=== PATIENT | female | born 1970 | race Caucasian/White ===

== ENCOUNTER 2022-08-30 12:40 | Emergency (ER) | payer OTHER, SELFPAY ==
[2022-08-30 13:04] VITALS: BP 126/84; BP 149/82; PULSE 67; PULSE 70; RESP 18; TEMP 36.3; O2SAT 100; BMI 33.5
[2022-08-30 13:30] LABS: Appearance Urine Clear; Color Urine Yellow; Glucose Urine UA Negative (Negative); Leukocyte Esterase Urine Negative (Negative); Nitrite Urine Negative (Negative); Specific Gravity - Urine 1.015 (1.005-1.025); Urine Blood Negative (Negative); Urine Ketones Negative (Negative); Urine Protein Negative (Neg-Trace)
[2022-08-30] MEDS: Acetaminophen 325 MG TABLET 975 MG PO (13:41)
[2022-08-30] MEDS: Ketorolac Tromethamine 30 MG/ML VIAL IM (13:42)
--- NOTE | 2022-08-30 13:47 | PC.NURSE ---
pt medicated per MAR
--- NOTE | 2022-08-30 14:19 | ED_ITS ---
HPI - Back Pain/Injury General Chief Complaint: Back Pain/Injury Stated Complaint: LOW BACK PAIN S/P REACH,FELT POP PER EMS Time Seen by Provider: 08/30/22 12:43 History of Present Illness HPI Narrative: Patient complains of right-sided low back pain which began at work when she lifted an item out of a tub and felt severe back pain and spasm and was not able to straighten up and ambulance was caused and she was brought to the hospital She denies any weakness of any muscles she denies any numbness or loss of sensation, she does have tingling going down into her right gluteal area but not all the way to the toes, she has no changes to bowel or bladder no incontinence no dysuria No IV drugs no for Related Data Previous Rx's Medication Instructions Recorded acetaminophen 500 mg tablet 1,000 mg PO TID PRN pain #30 tabs 08/30/22 cyclobenzaprine 5 mg tablet 5 mg PO TID PRN muscle spasm #10 08/30/22 tabs ibuprofen 600 mg tablet 600 mg PO Q6H PRN pain #20 tabs 08/30/22 lidocaine 5 % topical patch 1 patch topical DAILY Back pain 08/30/22 #15 ea oxycodone 5 mg tablet 5 mg PO Q6H PRN pain #10 tabs 08/30/22 Allergies Allergy/AdvReac Type Severity Reaction Status Date / Time Penicillins Allergy Unknown Verified 08/30/22 13:04 [facility] Past Medical History Source: nursing notes reviewed Social History Social History Advance Directives: No Advance Directives Information Provided: No Physical Exam Vital Signs: Vital Signs: Last Vital Signs Temp 97.4 F 08/30/22 13:04 Pulse 67 08/30/22 13:04 Resp 18 08/30/22 13:04 BP 149/82 H 08/30/22 13:04 Pulse Ox 100 08/30/22 13:04 O2 Del Method Room Air 08/30/22 13:04 BMI result Body Mass Index 33.5 General appearance is no acute distress Head is normocephalic atraumatic Neck is supple Respiratory no distress Ribs and chest wall nontender Abdomen is soft and nontender no rebound no guarding The back pain is easily reproduced with movement, there is right lower lumbar and upper gluteal tenderness, there is no focal bony tenderness no CVA tenderness no skin rash no redness or warmth Extremities full range of motion x4 Neuro motor is 5/5 x4 and sensation is intact and symmetrical in distal extremities Course Course Course Narrative: Patient who initially had severe back pain after lifting injury at work received Tylenol and Toradol in the department and was feeling much better and was able to straighten up and walk easily and was discharged with no neurologic deficit no changes to bowel or bladder Medications Administered Discontinued Medications Generic Name Dose Route Start Last Admin Trade Name Freq PRN Reason Stop Dose Admin Acetaminophen 975 mg 08/30/22 13:34 08/30/22 13:41 Acetaminophen 325 Mg Tablet PO 08/30/22 13:35 975 mg ONCE ONE Administration Ketorolac Tromethamine 30 mg 08/30/22 13:34 08/30/22 13:42 Ketorolac Tromethamine 30 Mg/Ml Vial IM 08/30/22 13:35 30 mg ONCE ONE Administration Medical Decision Making Lab Data Labs: Lab Results 08/30/22 Range/Units 13:12 Urine Color Yellow Urine Appearance Clear Urine pH 7.0 (5.0-9.0) Ur Specific [place] 1.015 (1.005-1.025) Urine Protein Negative (Neg-Trace) mg/dL Urine Glucose (UA) Negative (Negative) mg/dL Urine Ketones Negative (Negative) mg/dL Urine Blood Negative (Negative) Urine Nitrite Negative (Negative) Ur Leukocyte Esterase Negative (Negative) Discharge Plan Discharge Clinical Impression: Strain of lumbar region Patient Disposition: Home, Self-Care Additional Instructions: You likely strained muscles in your back Follow with [facility] if needed for work related injury Return any time if worse Activity as tolerated and this is usually self-limited will usually get better in a reasonable amount of time Prescriptions: New ibuprofen 600 mg tablet 600 mg PO Q6H PRN (Reason: pain) Qty: 20 0RF acetaminophen 500 mg tablet 1,000 mg PO TID PRN (Reason: pain) Qty: 30 0RF cyclobenzaprine 5 mg tablet 5 mg PO TID PRN (Reason: muscle spasm) Qty: 10 0RF lidocaine 5 % adhesive patch,medicated 1 patch topical DAILY Qty: 15 0RF Rx Instructions: leave on most painful area for up to 12 hrs oxycodone 5 mg tablet 5 mg PO Q6H PRN (Reason: pain) Qty: 10 0RF Rx Instructions: Partial Fill upon patient request. Referrals: [facility] [Provider Group] (Back strain after lifting injury at work) Stand Alone Forms: Work/School Release
== END 2022-08-30 14:33 | disposition home or self-care (01) ==
PROVIDERS: Physician Assistant Medical; Emergency Provider Emergency Medicine; PCP Nurse Practitioner Family
DX: S39.012A Strain of muscle, fascia and tendon of lower back, initial encounter (principal); X50.0XXA Overexertion from strenuous movement or load, initial encounter; Y93.E2 Activity, laundry; Y92.512 Supermarket, store or market as the place of occurrence of the external cause; Y99.0 Civilian activity done for income or pay
CPT/HCPCS: 81003; 96372; 99284; J1885